=== PATIENT | male | born 1950 | race Two or more races ===

== ENCOUNTER 2017-11-03 07:25 | Emergency (ER) | payer OTHER ==
[~2017-11-03] VITALS: Ht 180.3 cm; Wt 99.8 kg
--- NOTE | 2017-11-03 08:05 | Emergency Room Report ---
History of Present Illness General Chief Complaint: Laceration Source: Patient Present Illness HPI Patient cut his left little finger with a knife at work. The knife was in a towel and he didn't see it. This continued bleeding and there is numbness distal to the cut. His tetanus is up-to-date. He denies any medical problems. There was no pain initially but pain is developed to 8/10 and throbbing and burning. The pain doesn't radiate. The patient denies any medical problems. R handed. Allergies: Coded Allergies: No Known Allergies (Unverified , 11/03/17) Patient History Past Medical History: see triage record Social History: Denies: smoking, alcohol use Social History Narrative born [place], works a [employer] Reviewed Nursing Documentation: PMH: Agreed; PSxH: Agreed Nursing Documentation-PMH Past Medical History: No Stated History Review of Systems Constitutional: Denies: fever Musculoskeletal: Reports: see HPI Skin: Reports: see HPI Neurological: Reports: see HPI Hematologic/Lymphatic: Reports: see HPI Physical Exam Vital Signs Date Time Temp Pulse Resp B/P (MAP) Pulse Ox O2 Delivery O2 Flow Rate FiO2 11/03/17 07:28 97.7 62 18 141/84 98 Room Air 97.7 Sp02 EP Interpretation: reviewed, normal General Appearance: well appearing, no apparent distress Head: normocephalic, atraumatic Eyes: bilateral eye normal inspection, bilateral eye PERRL ENT: hearing grossly normal, normal voice Neck: full range of motion, supple Respiratory: no respiratory distress, speaking full sentences Musculoskeletal: gait/station normal, normal range of motion, other - flexor tendons intact (prof and sup) Neurologic: alert, normal gait, sensory deficit - distal to cut Psychiatric: mood/affect normal Skin: no rash, laceration - 1 cm lateral (ulnar) side little finger left Procedures Laceration/Wound Repair Laceration/Wound Repair : Consent: Verbal Wound Location: upper extremity Wound's Depth, Shape: linear, other - nerve deficit Wound Length (cm): 1 - 1.5 Wound Explored: clean Irrigated w/ Saline (ccs): 20 Anesthesia: 1% Lidocaine Volume Anesthetic (ccs): 1 - 0.5 Wound Debrided: none Wound Repaired With: sutures Suture Size/Type: 5:0 Patient Tolerated: Well Complications: None Progress betadene, anesthetized. [place] applied (10 min) irrigated and sutured. Bleeding controlled. Medical Decision Making Diagnostic Impression: Primary Impression: Laceration of left little finger Qualified Codes: S61.217A - Laceration without foreign body of left little finger without damage to nail, initial encounter Additional Impression: Nerve damage ER Course Patient presents with left little finger laceration. There's bleeding and numbness suggesting that the ulnar neurovascular bundle has been cut. Sutures are indicated. See procedure note. Patient's tetanus status is up-to-date. Pain was controlled with local anesthetic. I discussed with the patient the fact that the nerve has been cut and what to expect. This may never grow back however some recovery is hoped Improved.. The patient is stable for outpatient observation and treatment. Last Vital Signs Date Time Temp Pulse Resp B/P (MAP) Pulse Ox O2 Delivery O2 Flow Rate FiO2 11/03/17 08:37 97.7 73 18 141/84 98 Room Air 97.7 Status: improved Disposition: HOME, SELF-CARE Condition: Improved Scripts Bacitracin (Bacitracin) 28.4 Gm Oint...g. 1 APPLIC TOPIC BID, #20 GM Prov: Alphonse Gibbons M.D. 11/03/17 Ibuprofen* (MOTRIN*) 600 Mg Tablet 600 MG ORAL Q6H PRN for For Pain, #16 TAB Prov: Alphonse Gibbons M.D. 11/03/17 Referrals: NON PHYSICIAN (PCP) Alphonse Gibbons M.D. Nov 03, 2017 08:05
[2017-11-03] MEDS ORDERED: Bacitracin Oint UD TOPIC ONE ×2 (08:06→08:15)
[2017-11-03 08:08] VITALS: BP 141/84
[2017-11-03] MEDS ORDERED: IBUPROFEN600 MG ORAL (08:18)
[2017-11-03] MEDS ORDERED: BACITRACIN15 GM TOPIC (08:18)
[2017-11-03 08:37] VITALS: BP 141/84
== END 2017-11-03 08:52 | disposition home or self-care (01) ==
LOC: EMR 07:50
DX: S61.217A Laceration without foreign body of left little finger without damage to nail, initial encounter (principal); W26.0XXA Contact with knife, initial encounter; Y93.G3 Activity, cooking and baking; Y92.59 Other trade areas as the place of occurrence of the external cause; Y99.0 Civilian activity done for income or pay
CPT/HCPCS: 99282